=== PATIENT | male | born 1935 | race Caucasian/White ===

== ENCOUNTER 2016-11-24 20:32 | Emergency (ER) | payer MEDICARE, OTHER ==
[~2016-11-24 20:32] MED LIST: ASPIRIN325 M3 PO; ASPIRIN325 MG PO; ATORVASTATIN CA10 M1 PO; ATORVASTATIN CA10 MG PO; FISH OIL 1,0001 EA10 PO; FLAX SEED OIL1 EAC1 PO; FLAXSEED OIL PO; HYDROCHLOROTH12.5 M3 PO; HYDROCHLOROTH12.5 MG PO; LATANOPROST2.5 M1 OP; LATANOPROST2.5 ML OP; MULTIVITAMIN1 TAB PO; MULTIVITAMINS1 EAC6 PO; OMEGA-3 FISH OI1 CA1 PO; SENOKOT-S TABL1 EACH PO; SV FLAXSEED OI1 EACH; SV FLAXSEED OI1 EACH PO; TIMOLOL MALEAT OP; TIMOPTIC 0.5%1 EACH EACH EYE; TIMOPTIC2.5 M OP; TYLENOL325 M2 PO; ULTRAM50 M1 PO; VITAMIN D31000 UNI2 PO; VITAMIN D31000 UNI4 PO; VITAMIN E400 UNI1 PO; VITAMIN E400 UNI8 PO; XARELTO10 M1 PO
[2016-11-24] MEDS ORDERED: PERCOCET 5-3251 EACH PO (22:53)
== END 2016-11-24 23:10 ==
LOC: EDMED 20:32
PROC: 2W3QX1Z Immobilization of Right Lower Leg using Splint (ICD-10-PCS; principal; 2016-11-24)
DX: S82.401A Unspecified fracture of shaft of right fibula, initial encounter for closed fracture (principal); I10 Essential (primary) hypertension; E78.00 Pure hypercholesterolemia, unspecified; X50.1XXA Overexertion from prolonged static or awkward postures, initial encounter; Y93.9 Activity, unspecified